=== PATIENT | male | born 1975 | race Caucasian/White ===

== ENCOUNTER → 2016-12-21 | Outpatient (CLI) | payer BC | LOC: EMI 09:19 | DX: R42 Dizziness and giddiness (principal); H93.19 Tinnitus, unspecified ear; J32.0 Chronic maxillary sinusitis; J34.89 Other specified disorders of nose and nasal sinuses | CPT/HCPCS: 70553; A9577; J7050 ==

== ENCOUNTER → 2016-12-30 | Outpatient (CLI) | payer BC | LOC: EMI 08:56 | DX: M54.12 Radiculopathy, cervical region (principal); M99.71 Connective tissue and disc stenosis of intervertebral foramina of cervical region | CPT/HCPCS: 72141 ==